=== PATIENT | female | born 1990 | race African-American/Black ===

== ENCOUNTER 2016-07-10 16:19 | Emergency (ER) | payer OTHER ==
[2016-07-10 16:26] VITALS: BP 153/87; PULSE 106; TEMP 98; BMI 32.1
--- NOTE | 2016-07-10 17:17 | PDOC ---
History of Present Illness - General Chief Complaint: Pain Stated Complaint: LT LEG FEELS FUNNY Time Seen by Provider: 07/10/16 16:52 History Source: Patient Exam Limitations: No Limitations - History of Present Illness Initial Comments: 07/10/16 17:21 Chief complaint: Strange sensation left foot at times History of present illness: Patient is a 25-year-old female with no significant medical history here today complaining of a strange sensation in her left foot at times for the last few weeks that starts in her first met tarsal joint and at times spreads to her dorsal foot. Patient denies any swelling of her left calf or foot. Patient denies any numbness of her foot left. She denies any back pain. Patient reports that she does stand at times for long period of time. Patient reports wearing sneeze covers most of the time. Patient was reading on the Internet that she might have decreased circulation became scared and decided to come here. Patient reports that at time she sits with her leg bent and onto her left foot. She denies any injury to her foot. Occurred: reports: other (intermittent for a few weeks left foot feels funny mostly at 1st mcp jt ) Severity: Yes: mild Lower Extremity Pain Location: left: foot (first metatarsal jt mostly ) Method of Injury: Yes: other (sit on left foot at times) Modifying Factors: improves with: None Lower Ext. Injury Location - Specific Injury Location Foot: left foot other (slight discomfort to left 1 st metatarsal jt can radiate to dorsal foot ) Extremity Pain Location - Extremity Pain Location Extremity Pain Locations: left: foot (1 st metatarsal jt can radiate to dorsal foot) Past History - Past Medical History Allergies/Adverse Reactions: Allergies Allergy/AdvReac Type Severity Reaction Status Date / Time No Known Allergies Allergy Verified 07/10/16 16:26 Home Medications: Ambulatory Orders NK [No Known Home Medication] 05/03/15 Asthma: No Cancer: No Cardiac Disorders: No Diabetes: No HTN: No Seizures: No Thyroid Disease: No - Psycho/Social/Smoking Cessation Hx Anxiety: No Suicidal Ideation: No Smoking History: Current every day smoker Have you smoked in the past 12 months: Yes Number of Cigarettes Smoked Daily: 2 Information on smoking cessation initiated: Yes 'Breaking Loose' booklet given: 07/10/16 Hx Alcohol Use: Yes (SOCIAL) Drug/Substance Use Hx: No Substance Use Type: None Hx Substance Use Treatment: No Review of Systems - Review of Systems Able to Perform ROS?: Yes Constitutional: No: Symptoms Reported HEENTM: No: Symptoms Reported Respiratory: No: Symptoms reported Cardiac (ROS): No: Symptoms Reported ABD/GI: No: Symptoms Reported : No: Symptoms Reported Musculoskeletal: Yes: Joint Pain (left foot starts at 1st metatarsal at time discomfort to dorsal foot) Integumentary: No: Symptoms Reported Neurological: No: Symptoms reported *Physical Exam - Vital Signs Last Vital Signs Temp Pulse Resp BP Pulse Ox 98.0 F 106 H 20 153/87 100 07/10/16 16:22 07/10/16 16:22 07/10/16 16:22 07/10/16 16:22 07/10/16 16:22 - Physical Exam General Appearance: Yes: Appropriately Dressed Respiratory/Chest: positive: Lungs Clear, Normal Breath Sounds. negative: Chest Tender, Respiratory Distress Cardiovascular: positive: Regular Rhythm, Regular Rate, S1, S2 Vascular Pulses: Doralis-Pedis (L): 4+ Musculoskeletal: positive: Normal Inspection. negative: CVA Tenderness, CVA Tenderness (L), Decreased Range of Motion, Vertebral Tenderness Extremity: positive: Normal Capillary Refill, Normal Inspection, Normal Range of Motion, Tender (left first metatarsal jt, bunion noted ), Other (no swelling of calf left, negative Marlene left ) Integumentary: positive: Normal Color Neurologic: positive: Alert, Normal Response (left foot ), Respond to painful stimul (left foot), Responsive. negative: Numbness (left foot ), Sensory Deficit (left foot ) Deep Tendon Reflexes: Ankle (L): 4+ Medical Decision Making - Medical Decision Making 07/10/16 17:21 07/10/16 17:23 Patient is a 25-year-old female with no significant medical history here today complaining of a strange sensation in her left foot at times for the last few weeks that starts in her first met tarsal joint and at times spreads to her dorsal foot. Patient denies any swelling of her left calf or foot. Patient denies any numbness of her foot left. She denies any back pain. Patient reports that she does stand at times for long period of time. Patient reports wearing sneeze covers most of the time. Patient was reading on the Internet that she might have decreased circulation became scared and decided to come here. Patient reports that at time she sits with her leg bent and onto her left foot. She denies any injury to her foot. Strange sensation left foot bunion noted left worse than right Plan: Follow-up with podiatry for further evaluation *DC/Admit/Observation/Transfer Diagnosis at time of Disposition: Bunion of left foot - Discharge Dispostion Disposition: HOME Condition at time of disposition: Stable - Referrals Referrals: Darrion Frausto MD [Primary Care Provider] - Sherrill Scott MD [Staff Physician] - - Patient Instructions Additional Instructions: follow Up with childcare worker this week for further evaluation Return to emergency room if symptoms worsen any swelling of left foot or leg Avoid Sitting on your left foot She voiced understanding of discharge instructions and all questions were answered
== END 2016-07-10 17:34 | disposition home or self-care (01) ==
LOC: JER 16:19 → JERFT 16:19
DX: M21.612 Bunion of left foot (principal); F17.210 Nicotine dependence, cigarettes, uncomplicated
CPT/HCPCS: 99281-25

== ENCOUNTER 2016-10-23 09:54 | Emergency (ER) | payer OTHER ==
[2016-10-23 10:01] VITALS: BP 105/59; PULSE 92; TEMP 98.5; BMI 35.1
[2016-10-23] MEDS ORDERED: KETOROLAC TROMETHAMINE 60 MG/2 ML VIAL IM ONE (10:39)
--- NOTE | 2016-10-23 10:39 | PDOC ---
History of Present Illness - General Chief Complaint: Pain Stated Complaint: FOOT PAIN Time Seen by Provider: 10/23/16 10:15 History Source: Patient Exam Limitations: No Limitations - History of Present Illness Initial Comments: 10/23/16 10:32 C/o pain to left great toe / foot since yesterday/ Knows has Bunion with appointment to Podiatry the end of the month. Occurred: reports: just prior to arrival, yesterday Severity: reports: mild, moderate Pain Location: reports: lower extremity (left foot- ) Modifying Factors: improves with: None Past History - Travel Traveled outside of the country in the last 30 days: No Close contact w/someone who was outside of country & ill: No - Past Medical History Allergies/Adverse Reactions: Allergies Allergy/AdvReac Type Severity Reaction Status Date / Time No Known Allergies Allergy Verified 10/23/16 09:58 Home Medications: Ambulatory Orders Naproxen [Naprosyn -] 500 mg PO BID #20 tablet 10/23/16 Asthma: No Cancer: No Cardiac Disorders: No Diabetes: No HTN: No Seizures: No Thyroid Disease: No Other medical history: denies. - Psycho/Social/Smoking Cessation Hx Anxiety: No Suicidal Ideation: No Smoking History: Current every day smoker Have you smoked in the past 12 months: Yes Number of Cigarettes Smoked Daily: 2 Information on smoking cessation initiated: No 'Breaking Loose' booklet given: 07/10/16 Hx Alcohol Use: Yes (occassionally.) Drug/Substance Use Hx: No Substance Use Type: Alcohol Hx Substance Use Treatment: No Review of Systems - Review of Systems Able to Perform ROS?: Yes Is the patient limited Polish proficient: Yes Constitutional: Yes: See HPI. No: Symptoms Reported, Chills, Fever HEENTM: No: Symptoms Reported Respiratory: No: Symptoms reported Musculoskeletal: Yes: Symptoms Reported, Joint Pain, Joint Swelling Integumentary: Yes: Symptoms Reported, See HPI All Other Systems: Reviewed and Negative *Physical Exam - Vital Signs Last Vital Signs Temp Pulse Resp BP Pulse Ox 98.5 F 92 H 18 105/59 98 10/23/16 09:58 10/23/16 09:58 10/23/16 09:58 10/23/16 09:58 10/23/16 09:58 - Physical Exam General Appearance: Yes: Nourished, Appropriately Dressed, Mild Distress HEENT: positive: CASSIDY, Normal ENT Inspection, Normal Voice, TMs Normal, Pharynx Normal Neck: positive: Supple. negative: Tender Respiratory/Chest: positive: Lungs Clear Gastrointestinal/Abdominal: positive: Normal Bowel Sounds, Tender, Flat, Soft Extremity: positive: Normal Capillary Refill. negative: Normal Inspection ( mild valgus deformity to left great toe. pain at MCP 1st toe, ) Neurologic: positive: bioinformatics scientist II-XII NML intact, Fully Oriented, Alert, Normal Mood/ Affect, Normal Response, Motor Strength 5/5 Progress Note - Progress Note Progress Note: Bunion pain / will treat with NSAIDs *DC/Admit/Observation/Transfer Diagnosis at time of Disposition: Bunion of left foot - Discharge Dispostion Disposition: HOME Condition at time of disposition: Stable Admit: No - Prescriptions Prescriptions: Naproxen [Naprosyn -] 500 mg PO BID #20 tablet - Referrals Referrals: Darrion Frausto MD [Primary Care Provider] - - Patient Instructions Printed Discharge Instructions: DI for Bunion Additional Instructions: Rest, ice to area on and off for 15 minutes 4-6 times a day Avoid heavy lifting or exercise until pain and swelling is resolved or until further directed Keep area highly elevated to reduce swelling Use splints/Ty wrap as directed Followup with orthopedist in one to 2 days if not improving, if significantly improved may wait one week for followup with orthopedist May use Naprosyn 1-500 milligrams tablet 8 hours as needed for pain - Post Discharge Activity Work/School Note: Back to Work
[2016-10-23] MEDS ORDERED: KETOROLAC TROMETHAMINE 60 MG/2 ML VIAL ONE (10:42)
== END 2016-10-23 10:50 | disposition home or self-care (01) ==
LOC: JERFT 09:54 → SUPCPDRO 09:54 → JERFT 10:50
PROC: 3E0233Z Introduction of Anti-inflammatory into Muscle, Percutaneous Approach (ICD-10-PCS; principal; 2016-10-23)
DX: M21.612 Bunion of left foot (principal); F17.210 Nicotine dependence, cigarettes, uncomplicated
CPT/HCPCS: 96372; 99281-25

== ENCOUNTER 2017-02-18 13:24 | Emergency (ER) | payer OTHER ==
[2017-02-18 13:28] VITALS: BP 128/92; PULSE 97; TEMP 98.2; BMI 34.1
--- NOTE | 2017-02-18 16:23 | PDOC ---
History of Present Illness - General Chief Complaint: Pain Stated Complaint: LT FOOT PAIN History Source: Patient Exam Limitations: No Limitations - History of Present Illness Initial Comments: 02/18/17 16:18 CHIEF COMPLAINT: LEFT FOOT PAIN CHRONIC WORSE RECENTLY HISTORY OF PRESENT ILLNESS:Patient is a 26-year-old female with no significant medical history except for a bunion on her left foot here today complaining of worsening pain to the bunion area over the last few weeks. Patient had seen electric relay tester and electric relay tester had wanted an x-ray of the area Dr. Sherrill Graham. Patient denies doing any strenuous activities or any injury to her left foot. Patient denies any chance of is on control. Occurred: reports: other (MONTHS WORSE RECENTLY ) Lower Extremity Pain Location: left: 1st toe (proximal aspect at metatarsal jt) Method of Injury: Yes: other (no injury ) Modifying Factors: improves with: None Lower Ext. Injury Location - Specific Injury Location Foot: left foot normal range of motion, left foot bone tenderness (1st metatarsal ), left foot pain (1st metatarsal ), left foot swelling (deformity noted at 1st metatarsal jt) Extremity Pain Location - Extremity Pain Location Extremity Pain Locations: left: 1st toe (metatarsal ) Past History - Past Medical History Allergies/Adverse Reactions: Allergies Allergy/AdvReac Type Severity Reaction Status Date / Time No Known Allergies Allergy Verified 02/18/17 13:28 Home Medications: Ambulatory Orders NK [No Known Home Medication] 02/18/17 Asthma: No Cancer: No Cardiac Disorders: No Diabetes: No HTN: No Seizures: No Thyroid Disease: No Other medical history: denies - Psycho/Social/Smoking Cessation Hx Anxiety: No Suicidal Ideation: No Smoking History: Current every day smoker Have you smoked in the past 12 months: Yes Number of Cigarettes Smoked Daily: 5 Information on smoking cessation initiated: Yes 'Breaking Loose' booklet given: 02/18/17 Hx Alcohol Use: No Drug/Substance Use Hx: No Substance Use Type: None Hx Substance Use Treatment: No Review of Systems - Review of Systems Able to Perform ROS?: Yes Constitutional: No: Symptoms Reported HEENTM: No: Symptoms Reported Respiratory: No: Symptoms reported Cardiac (ROS): No: Symptoms Reported ABD/GI: No: Symptoms Reported : No: Symptoms Reported Musculoskeletal: Yes: Joint Pain (left proximal jt deformity noted ), Joint Swelling (left metatarsal jt deformity noted ) Integumentary: No: Symptoms Reported Neurological: No: Symptoms reported *Physical Exam - Vital Signs Last Vital Signs Temp Pulse Resp BP Pulse Ox 98.2 F 97 H 18 128/92 100 02/18/17 13:25 02/18/17 13:25 02/18/17 13:25 02/18/17 13:25 02/18/17 13:25 - Physical Exam General Appearance: Yes: Appropriately Dressed Vascular Pulses: Doralis-Pedis (L): 4+ Extremity: positive: Normal Capillary Refill, Normal Range of Motion (left foot toes, left metatarsal jt), Tender (left 1st metatarsal jt), Swelling (deformity of 1 st left metatarsal jt). negative: Normal Inspection Integumentary: positive: Normal Color Neurologic: positive: Alert, Normal Response, Respond to painful stimul (left foot ), Responsive. negative: Numbness, Sensory Deficit (left foot ) ED Treatment Course - RADIOLOGY Radiology Studies Ordered: Category Date Time Status FOOT-LEFT [RAD] Stat Radiology 02/18/17 15:26 Completed Medical Decision Making - Medical Decision Making 02/18/17 16:20 Patient is a 26-year-old female with no significant medical history except for a bunion on her left foot here today complaining of worsening pain to the bunion area over the last few weeks. Patient had seen electric relay tester and electric relay tester had wanted an x-ray of the area Dr. Sherrill Graham. Patient denies doing any strenuous activities or any injury to her left foot. Patient denies any chance of is on control. LEFT FOOT BUNION PLAN: XRAY LEFT FOOT LEFT HALLUX VALGUS FOLLOW UP WITH DR. SHERRILL PANIAGUA 02/18/17 16:22 02/18/17 20:20 *DC/Admit/Observation/Transfer Diagnosis at time of Disposition: Bunion of great toe - Discharge Dispostion Disposition: HOME Condition at time of disposition: Stable - Referrals Referrals: Darrion Frausto MD [Primary Care Provider] - - Patient Instructions Additional Instructions: FOLLOW UP WITH STUDIO ARTIST SOON POSSIBLE WITH CD OF XRAY TAKE IBUPROFEN, ALEVE AND ADVIL AVOID WEARING SHOES WITH HEELS PATIENT VOICED UNDERSTANDING OF DISCHARGE INSTRUCTIONS AND ALL QUESTIONS WERE ANSWERED - Post Discharge Activity Work/School Note: Back to Work
== END 2017-02-18 16:32 | disposition home or self-care (01) ==
LOC: JERFT 13:24
DX: M21.612 Bunion of left foot (principal); M20.12 Hallux valgus (acquired), left foot
CPT/HCPCS: 73630-TC-LT; 99281-25

== ENCOUNTER 2017-10-14 08:46 | Emergency (ER) | payer OTHER ==
[2017-10-14 08:52] VITALS: BP 121/73; PULSE 98; TEMP 98.3; BMI 31.4
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
[2017-10-14] MEDS ORDERED: IBUPROFEN 400 MG TABLET (FP) PO ONE ×2 (09:11→09:14)
== END 2017-10-14 09:41 | disposition home or self-care (01) ==
LOC: JERFT 08:46
DX: M79.662 Pain in left lower leg (principal); Y04.2XXA Assault by strike against or bumped into by another person, initial encounter; Y93.89 Activity, other specified; Y92.159 Unspecified place in reform school as the place of occurrence of the external cause; Y99.0 Civilian activity done for income or pay; F17.210 Nicotine dependence, cigarettes, uncomplicated
CPT/HCPCS: 73590-TC-LT-FY; 99281-25

== ENCOUNTER 2018-09-27 13:09 | Emergency (ER) | payer SELFPAY ==
[2018-09-27 13:32] VITALS: BP 126/75; PULSE 91; TEMP 98.3; BMI 28.3
--- NOTE | 2018-09-27 13:58 | PDOC ---
History of Present Illness - General Chief Complaint: Cold Symptoms Stated Complaint: COLD SYMPTOMS Time Seen by Provider: 09/27/18 13:35 History Source: Patient Exam Limitations: No Limitations Past History - Travel Traveled outside of the country in the last 30 days: No Close contact w/someone who was outside of country & ill: No - Past Medical History Allergies/Adverse Reactions: Allergies Allergy/AdvReac Type Severity Reaction Status Date / Time No Known Allergies Allergy Verified 09/27/18 13:32 Home Medications: Ambulatory Orders Fluticasone Prop 0.05% Nasal [Flonase -] 1 - 2 spray NS DAILY #1 spray.pump Pseudoephedrine HCl 30 mg PO Q8H #15 tablet 09/27/18 Asthma: No Cancer: No Cardiac Disorders: No COPD: No Diabetes: No HTN: No Seizures: No Thyroid Disease: No - Immunization History Immunization Up to Date: Yes - Suicide/Smoking/Psychosocial Hx Smoking History: Never smoked Have you smoked in the past 12 months: No Number of Cigarettes Smoked Daily: 5 Information on smoking cessation initiated: No 'Breaking Loose' booklet given: 02/18/17 Hx Alcohol Use: No Drug/Substance Use Hx: No Substance Use Type: None Hx Substance Use Treatment: No Review of Systems - Review of Systems Able to Perform ROS?: Yes Comments:: 09/27/18 13:51 CONSTITUTIONAL: Absent: fever, chills, diaphoresis, generalized weakness, malaise, loss of appetite HEENT: Present: rhinorrhea, throat pain, nasal congestion Absent: throat swelling, difficulty swallowing, mouth swelling, ear pain, eye pain, visual Changes CARDIOVASCULAR: Absent: chest pain, loss of consciousness, palpitations, irregular heart rate, peripheral edema RESPIRATORY: Present: cough Absent: cough, shortness of breath, dyspnea with exertion, orthopnea, wheezing, stridor, hemoptysis GASTROINTESTINAL: Absent: abdominal pain, abdominal distension, nausea, vomiting, diarrhea, constipation, melena, hematochezia GENITOURINARY: Absent: dysuria, frequency, urgency, hesitancy, hematuria, flank pain, genital pain MUSCULOSKELETAL: Absent: myalgia, arthralgia, joint swelling SKIN: Absent: rash, itching, pallor HEMATOLOGIC/IMMUNOLOGIC: Absent: easy bleeding, easy bruising, lymphadenopathy, frequent infections ENDOCRINE: Absent: unexplained weight gain, unexplained weight loss, heat intolerance, cold intolerance NEUROLOGIC: Absent: headache, focal weakness or paresthesias, dizziness, unsteady gait, seizure, mental status changes, bladder or bowel incontinence PSYCHIATRIC: Absent: anxiety, depression, suicidal or homicidal ideation, hallucinations. Is the patient limited Mongolian proficient: No *Physical Exam - Vital Signs Last Vital Signs Temp Pulse Resp BP Pulse Ox 98.3 F 91 H 18 126/75 99 09/27/18 13:29 09/27/18 13:29 09/27/18 13:29 09/27/18 13:29 09/27/18 13:29 - Physical Exam Comments: 09/27/18 13:55 GENERAL: Well developed, well nourished. Awake and alert. No acute distress. HEENT: Normocephalic, atraumatic. PERRLA, EOMI. No conjunctival pallor. Sclera are non- icteric. Moist mucous membranes. Oropharynx is clear. Injected nasal turbinates NECK: Supple. Full ROM. No JVD. Carotid pulses 2+ and symmetric, without bruits. No thyromegaly. No lymphadenopathy. CARDIOVASCULAR: Regular rate and rhythm. No murmurs, rubs, or gallops. Distal pulses are 2+ and symmetric. PULMONARY: No evidence of respiratory distress. Lungs clear to auscultation bilaterally. No wheezing, rales or rhonchi. SKIN: Warm and dry. Normal capillary refill. No rashes. No jaundice. NEUROLOGICAL: Alert, awake, appropriate. Cranial nerves 2-12 intact. No deficits to light touch and temperature in face, upper extremities and lower extremities. No motor deficits in the in face, upper extremities and lower extremities. Normoreflexic in the upper and lower extremities. Normal speech. Toes are down- going bilaterally. Gait is normal without ataxia. Medical Decision Making - Medical Decision Making 09/27/18 13:56 The patient is a 27-year-old femaleno past medical history presents to the ER today for 3 days of body aches, chills, cough, sore throat. She states she has been taking Advil, NyQuil for her symptoms with relief. She states that now she is mostly congested and has trouble breathing through her right nostril. Denies fevers, chills, difficulty breathing, shortness of breath, earache, chest pain, nausea, vomiting and diarrhea. A/P: Upper respiratory infection. Centor criteria is a 0 at this time. Will defer strep testing. We will add Sudafed and Flonase for symptomatic treatment of congestion. Patient to follow-up with her primary care doctor. Discharge home I discussed the physical exam findings, ancillary test results and final diagnoses with the patient. I answered all of the patient's questions. The patient was satisfied with the care received and felt comfortable with the discharge plan and treatment plan. The Patient agrees to follow up with the primary care physician/specialist within 24-72 hours. Return precautions were given. *DC/Admit/Observation/Transfer Diagnosis at time of Disposition: URI (upper respiratory infection) Qualifiers: URI type: unspecified viral URI Qualified Code(s): J06.9 - Acute upper respiratory infection, unspecified - Discharge Dispostion Disposition: HOME Condition at time of disposition: Stable Decision to Admit order: No - Referrals Referrals: Darrion Frausto MD [Primary Care Provider] - - Patient Instructions Printed Discharge Instructions: DI for Viral Upper Respiratory Infection -- Adult Additional Instructions: You have an upper respiratory infection, or the common cold. Take the pseudofed and flonase as directed Please take Motrin 800 mg every 8 hours as needed for pain not to exceed 3000 mg a day. Drink plenty of fluids. Cough drops and warm tea may help your symptoms as well. Please follow up with her primary care doctor this week. Return to the emergency department if you have difficulty breathing, shortness of breath, worsening pain, nausea, vomiting or if you have any changes in your symptoms - Post Discharge Activity Forms/Work/School Notes: Back to Work
== END 2018-09-27 14:11 | disposition home or self-care (01) ==
LOC: JERFT 13:09
DX: J06.9 Acute upper respiratory infection, unspecified (principal)
CPT/HCPCS: 99281-25